=== PATIENT | male | born 1935 | race Caucasian/White ===

== ENCOUNTER 2020-09-19 15:32 | Inpatient (IN) | payer MEDICARE ==
[~2020-09-19] VITALS: Ht 175.3 cm; Wt 126.1 kg
[2020-09-19 16:38] LABS: HEMOGLOBIN 13.2 gm/dl (14.0-17.5); RED BLOOD COUNT 3.98 M/UL (4.20-5.50); WHITE BLOOD COUNT 21.5 K/UL (4.5-11.0)
[2020-09-19 16:57] LABS: BUN/CREATININE RATIO 25 (0-10)
[2020-09-19] MEDS ORDERED: LASIX20 MG PO (18:38)
[2020-09-19] MEDS ORDERED: VERAPAMIL ER180 MG PO (18:39)
[2020-09-19] MEDS ORDERED: XARELTO20 MG PO (18:39)
[2020-09-19] MEDS ORDERED: NEURONTIN300 MG PO (18:39)
[2020-09-19] MEDS ORDERED: ZYRTEC10 MG PO (18:39)
[2020-09-19] MEDS ORDERED: ZYLOPRIM 300 M300 MG PO (18:40)
[2020-09-19] MEDS ORDERED: LISINOPRIL20 MG PO (18:40)
[2020-09-20 03:57] LABS: RED BLOOD COUNT 3.72 M/UL (4.20-5.50); WHITE BLOOD COUNT 24.3 K/UL (4.5-11.0)
[2020-09-20] MEDS ORDERED: TYLENOL325 MG PO (12:10)
[2020-09-20] MEDS ORDERED: VITAMIN D250 MCG PO (12:11)
[2020-09-20] MEDS ORDERED: VITAMIN C500 M4 PO (12:12)
[2020-09-20] MEDS ORDERED: FISH OIL 1,0001 EACH PO (12:13)
[2020-09-20] MEDS ORDERED: FLONASE 0.05% N16 GM (18:38)
[2020-09-20] MEDS ORDERED: SINGULAIR10 MG PO (18:38)
[2020-09-20] MEDS ORDERED: COLCHICINE0.6 M1 PO (18:40)
[2020-09-21 05:26] LABS: HEMOGLOBIN 12.2 gm/dl (14.0-17.5); RED BLOOD COUNT 3.77 M/UL (4.20-5.50); WHITE BLOOD COUNT 22.2 K/UL (4.5-11.0)
[2020-09-21 07:53] LABS: CAMPYLOBACTER Not Detected (Negative); CRYPTOSPORIDIUM Not Detected (Negative); E.COLI 0157 Not Detected (Negative); ENTAMOEBA HISTOLYTICA Not Detected (Negative); ENTEROAGGREGATIVE E.COLI (EAEC Not Detected (Negative); ENTEROTOXIGENIC E.COLI (ETEC) Not Detected (Negative); PLESIOMONAS SHIGELLOIDES Not Detected (Negative); SALMONELLA Not Detected (Negative); SHIG/ENTEROINVAS.ECOLI (EIEC) Not Detected (Negative); SHIGA-LIK TOX.PRO.E.COLI (STEC Not Detected (Negative); VIBRIO Not Detected (Negative); VIBRIO CHOLERAE Not Detected (Negative); YERSINIA ENTEROCOLITICA Not Detected (Negative)
[2020-09-21 07:54] LABS: ADENOVIRUS F 40/41 Not Detected (Negative); ASTROVIRUS Not Detected (Negative); GIARDIA LAMBLIA Not Detected (Negative); NOROVIRUS GI/GII Not Detected (Negative); ROTOVIRUS A Not Detected (Negative); SAPOVIRUS Not Detected (Negative)
[2020-09-21 08:44] LABS: BUN/CREATININE RATIO 43 (0-10)
[2020-09-21 12:45] LABS: ENTEROPATHOGENIC E.COLI (EPEC) DETECTED (Negative)
[2020-09-21 12:47] LABS: CLOSTRIDIUM DIFFICILE TOX A/B DETECTED (Negative)
[2020-09-22 06:39] LABS: HEMOGLOBIN 12.8 gm/dl (14.0-17.5); RED BLOOD COUNT 3.95 M/UL (4.20-5.50)
[2020-09-22 06:40] LABS: WHITE BLOOD COUNT 12.1 K/UL (4.5-11.0)
[2020-09-22 07:12] LABS: BUN/CREATININE RATIO 42 (0-10)
[2020-09-22] MEDS ORDERED: INVANZ 1 GM VIAL1 GM IV (12:01)
[2020-09-22] MEDS ORDERED: VANCOMYCIN HCL125 MG PO (12:01)
--- NOTE | 2020-09-22 15:26 | NUR ---
CALLED REPORT TO [facility].
== END 2020-09-22 15:57 | disposition home or self-care (01) | DRG 871 ==
LOC: ER1 15:32 → CDU 17:45 → MED SURG 4 17:45
PROVIDERS: Physician Assistant; Preventive Medicine Occupational Medicine; ADMIT Internal Medicine
DX: A41.51 Sepsis due to Escherichia coli [E. coli] (principal); J96.21 Acute and chronic respiratory failure with hypoxia; Z20.822 Contact with and (suspected) exposure to COVID-19; N30.00 Acute cystitis without hematuria; A04.72 Enterocolitis due to Clostridium difficile, not specified as recurrent; N39.0 Urinary tract infection, site not specified; Z68.41 Body mass index [BMI] 40.0-44.9, adult; E87.2 Acidosis; E78.5 Hyperlipidemia, unspecified; R65.20 Severe sepsis without septic shock; G47.33 Obstructive sleep apnea (adult) (pediatric); Z96.641 Presence of right artificial hip joint; Z96.653 Presence of artificial knee joint, bilateral; I48.91 Unspecified atrial fibrillation; E66.01 Morbid (severe) obesity due to excess calories; Z79.01 Long term (current) use of anticoagulants; Z82.49 Family history of ischemic heart disease and other diseases of the circulatory system
CPT/HCPCS: 36415; 36600; 71045; 71250; 80048; 80053; 80202; 81001; 82550; 82553; 82803; 83605; 83874; 84484; 85025; 85652; 86140; 87040; 87077; 87086; 87186; 87507; 93005; 94660; 94664; 94760; 96374; 96375; 99285; C1751; J0696; J1100; J1335; J2185; J3370; J7030; J7070; J7120; U0002

== ENCOUNTER → 2021-06-29 | Outpatient (CLI) | payer MEDICARE ==
[~2021-06-29] MED LIST: COLCHICINE0.6 M1 PO; FISH OIL 1,0001 EACH PO; FLONASE 0.05% N16 GM; INVANZ 1 GM VIAL1 GM IV; LASIX20 MG PO; LISINOPRIL20 MG PO; NEURONTIN300 MG PO; SINGULAIR10 MG PO; TYLENOL325 MG PO; VANCOMYCIN HCL125 MG PO; VERAPAMIL ER180 MG PO; VITAMIN C500 M4 PO; VITAMIN D250 MCG PO; XARELTO20 MG PO; ZYLOPRIM 300 M300 MG PO; ZYRTEC10 MG PO
== END ==
LOC: ECHO 11:00
DX: Z01.810 Encounter for preprocedural cardiovascular examination (principal); I48.20 Chronic atrial fibrillation, unspecified; R06.02 Shortness of breath; I70.0 Atherosclerosis of aorta; I08.1 Rheumatic disorders of both mitral and tricuspid valves
CPT/HCPCS: ECHO; 93306